=== PATIENT | male | born 1985 | race Two or more races ===

== ENCOUNTER 2021-05-17 09:18 | Emergency (ER) | payer OTHER ==
[~2021-05-17] VITALS: Ht 165.1 cm; Wt 81.6 kg
[2021-05-17] MEDS ORDERED: SYNTHROID88 MCG PO (09:53)
== END 2021-05-17 12:36 | disposition home or self-care (01) ==
LOC: ER 09:18
DX: K52.9 Noninfective gastroenteritis and colitis, unspecified (principal); Z11.52 Encounter for screening for COVID-19